=== PATIENT | female | born 1990 | race Caucasian/White ===

== ENCOUNTER 2017-08-13 21:47 | Emergency (ER) | payer BC, OTHER ==
[~2017-08-13] VITALS: Ht 167.6 cm; Wt 49.9 kg
[~2017-08-13 21:47] MED LIST: PREN27TA7 OR
[2017-08-13 22:03] VITALS: BP 112/69
== END 2017-08-13 22:13 | disposition home or self-care (01) ==
LOC: ER 21:47
DX: M25.511 Pain in right shoulder (principal); Z88.0 Allergy status to penicillin; Z88.1 Allergy status to other antibiotic agents
CPT/HCPCS: 73020